=== PATIENT | male | born 2000 | race Caucasian/White ===

== ENCOUNTER 2020-04-10 01:02 | Emergency (ER) | payer BC ==
[~2020-04-10] VITALS: Ht 193 cm; Wt 95.0 kg
[2020-04-10 01:34] VITALS: BP 125/65
[2020-04-10] MEDS ORDERED: LIDOCAINE 2% 20 ML (XYLOCAINE) VIAL INJ STA (01:42)
[2020-04-10] MEDS ORDERED: LIDOCAINE PF 2% 5 ML (XYLOCAINE) VIAL ONE (01:43)
[2020-04-10] MEDS ORDERED: RX-CEPHALEXIN (KEFLEX) 250 MG CAP PPK#4 PO STA (02:07)
[2020-04-10] MEDS ORDERED: CEPH-507 PO (02:11)
--- NOTE | 2020-04-10 02:11 | ED Upper Extremity ---
General Chief Complaint: Laceration Stated Complaint: LEFT HAND LAC,STS GLASS IN CUT Nursing Triage Note: Patient reports he broke a glass and lacerated his left thumb; bleeding initially controlled. Nursing Sepsis Screen: No Definite Risk Source: patient History of Present Illness Date Seen by Provider: Apr 10, 2020 Time Seen by Provider: 01:30 Initial Comments PT ARRIVES VIA POV C/O LACERATION TO LEFT THUMB OCCURRED JUST PRIOR TO ARRIVAL PT HAS BEEN DRINKING AN UNKNOWN AMOUNT OF ALCOHOL TONIGHT AND WAS HOLDING A GLASS BEER BOTTLE IN HIS LEFT HAND AND "SOMEHOW" THE GLASS BROKE, CUTTING HIS THUMB. DENIES BEING IN A FIGHT, ETC. 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 [employer] PT STATES HE IS UP TO DATE ON TETANUS VACCINATION [employer] Allergies and Home Medications Allergies Coded Allergies: No Known Drug Allergies (Unverified , 04/10/20) Home Medications Cephalexin 500 Mg Capsule, 500 MG PO QID Prescribed by: BECCA FALCON on 04/10/20 0211 Patient Home Medication List Home Medication List Reviewed: Yes Review of Systems Constitutional: no symptoms reported Musculoskeletal: see HPI Skin: see HPI Psychiatric/Neurological: No Symptoms Reported Past [id number] Hx Past Med/Social Hx: Reviewed and Corrections made Patient Social History Alcohol Use: Occasionally Uses Recreational Drug Use: No Smoking Status: Never a Smoker Recent Foreign Travel: No Contact w/Someone Who Travel: No Recent Infectious Disease Expo: Yes Recent Hopitalizations: No Immunizations Up To Date Tetanus Booster (TDap): Less than 5yrs Seasonal Allergies Seasonal Allergies: No Past Medical History Surgeries: No Respiratory: No Cardiac: No Neurological: No Genitourinary: No Gastrointestinal: No Musculoskeletal: No Endocrine: No HEENT: No Cancer: No Psychosocial: Yes Anxiety, Depression Integumentary: No Blood Disorders: No Physical Exam Vital Signs Vital Signs - First Documented 04/10/20 01:34 Temp 36.4 Pulse 74 Resp 18 B/P (MAP) 125/65 (85) Pulse Ox 96 O2 Delivery Room Air Capillary Refill : Less Than 3 Seconds Height, Weight, BMI Height: '" Weight: lbs. oz. kg; 25.00 BMI Method: General Appearance: WD/WN, no apparent distress, other (+ ODOR OF ETOH) Hand: Left (THUMB--OVER IP JOINT CREASE WITH 1.5 CM IRREGULAR, FLAP LACERATION. BLEEDING CONTROLLED WITH PRESSURE. MOTOR/SENSORY/VASCULAR INTACT. NO FOREIGN BODY IDENTIFIED. DEEPT STRUCTURES INTACT) Neurologic/Tendon: no evidence tendon injury Neurologic/Psychiatric: no motor/sensory deficits, alert, normal mood/affect, oriented x 3 Skin: normal color, warm/dry Procedures/Interventions Other Wound Location LEFT THUMB Wound Length (cm): 1.5 Wound's Depth, Shape: irregular, flap, sub Q Wound Explored: clean Irrigated w/ Saline (ccs): 100 Betadine Prep?: No (CHLORHEXIDINE) Anesthesia: 1% Lidocaine (2% LIDOCAINE PLAIN) Suture: Ethlion Suture Size: 4-0 Number of Sutures: 3 Layer Closure?: 1 Sterile Dressing Applied?: Yes Progress/Results/Core Measures Results/Orders My Orders Orders - BECCA FALCON DO Lidocaine 2% Injection 20 Ml (Xylocaine (04/10/20 01:42) Lidocaine 2% Pf 5 Ml (Xylocaine 2% Pf) (04/10/20 01:43) Ed Ortho/Other Supplies Order (04/10/20 02:07) Wound Dressing-Ed (04/10/20 02:07) Rx-Cephalexin Capsule (Rx-Keflex Capsule (04/10/20 02:07) Vital Signs/I&O 04/10/20 01:34 Temp 36.4 Pulse 74 Resp 18 B/P (MAP) 125/65 (85) Pulse Ox 96 O2 Delivery Room Air Blood Pressure Mean: 85 Departure Impression Primary Impression: Laceration of left thumb Disposition: 01 HOME, SELF-CARE Condition: Stable Departure-Patient Inst. Referrals: [facility] (PCP) Primary Care Physician Patient Instructions: Laceration Repair With Stitches (DC), SPLINT CARE Add. Discharge Instructions: CLEAN WOUND TWICE A DAY WITH ANTIBACTERIAL SOAP AND WATER ON A Q-TIP, OTHERWISE KEEP CLEAN AND DRY APPLY FRESH DRESSING TWICE A DAY WEAR SPLINT AT ALL TIMES TYLENOL AND MOTRIN NEEDED FOR PAIN SUTURES OUT IN 10 DAYS--RETURN TO ER FOR REMOVAL. DO NOT ATTEMPT TO REMOVE THEM AT HOME All discharge instructions reviewed with patient and/or family. Voiced understanding. Scripts Cephalexin (Keflex) 500 Mg Capsule 500 MG PO QID, #40 CAP Prov: BECCA FALCON DO 10/9/20 Work/School Note: School/Childcare Release Date Seen in the Emergency Department: Apr 10, 2020 Time Dismissed from Emergency Department: 02:11 Return to School: Apr 10, 2020 Restrictions: No PE-Until Released, No Sports-Until Released, Need Release from Doctor BECCA FALCON DO Apr 10, 2020 02:11
--- NOTE | 2020-04-10 02:25 | NUR ---
Wound cleansed/dressed and padded finger splint provided; pt d/c instructions provided; pt verbalized an understanding.
== END 2020-04-10 02:26 | disposition home or self-care (01) ==
LOC: ER 01:09
DX: S61.012A Laceration without foreign body of left thumb without damage to nail, initial encounter (principal); W25.XXXA Contact with sharp glass, initial encounter